=== PATIENT | male | born 1930 | race Caucasian/White ===

== ENCOUNTER 2016-03-06 14:16 | Emergency (ER) | payer MEDICARE, BC ==
[2016-03-06] MEDS ORDERED: SODIUM CHLORIDE 0.9% 1,000 ML IV ONE (14:39)
[2016-03-06 15:22] LABS: ALT 27 U/L (21-72); AST 21 U/L (17-59); Alkaline Phosphatase 54 U/L (38-126); Anion Gap 14 mmol/L; Blood Urea Nitrogen 21 mg/dL (9-20); Calcium 9.3 mg/dL (8.4-10.2); Carbon Dioxide 22 mmol/L (22-30); Chloride 106 mmol/L (98-107); Glucose 152 mg/dL (74-99); Non-African American GFR(MDRD) >60 (>60 ml/min/1.73 sqM); Potassium 4.5 mmol/L (3.5-5.1); Sodium 142 mmol/L (137-145); Total Bilirubin 0.6 mg/dL (0.2-1.3); Total Protein 6.6 g/dL (6.3-8.2)
--- NOTE | 2016-03-06 15:22 | ED ---
General Adult HPI - General Chief complaint: Altered Mental Status Stated complaint: Altered Mental Status Time Seen by Provider: 03/06/16 14:39 Source: EMS, RN notes reviewed, old records reviewed Mode of arrival: EMS Limitations: altered mental status - History of Present Illness Initial comments: This is a 85-year-old male here for evaluation. Patient coming in for evaluation of unresponsive episode, possible syncopal event, patient is brought in by EMS for evaluation. Patient's poor historian secondary to clinical state , history obtained from EMS, chart, patient's family - Related Data Home Medications Medication Instructions Recorded Confirmed Gabapentin 300 mg PO HS 03/06/16 03/06/16 Levothyroxine Sodium [Synthroid] 50 mcg PO DAILY 03/06/16 03/06/16 Lisinopril [Prinivil] 10 mg PO DAILY 03/06/16 03/06/16 Omeprazole [PriLOSEC] 20 mg PO AC-BID 03/06/16 03/06/16 Warfarin [Coumadin] 5 mg PO DAILY 03/06/16 03/06/16 metFORMIN HCL [Glucophage] 500 mg PO BID 03/06/16 03/06/16 predniSONE 5 mg PO DAILY 03/06/16 03/06/16 Allergies Allergy/AdvReac Type Severity Reaction Status Date / Time Sulfa (Sulfonamide Allergy Unknown Verified 03/06/16 14:37 Antibiotics) Review of Systems ROS Statement: Those systems with pertinent positive or pertinent negative responses have been documented in the HPI. ROS Other: All systems not noted in ROS Statement are negative. Past Medical History Past Medical History: Hearing Disorder / Deafness Additional Past Medical History / Comment(s): Hard of Hearing, hemochromatosis, History of Any Multi-Drug Resistant Organisms: Unobtainable Past Surgical History: Cholecystectomy Past Psychological History: Unable to Obtain Smoking Status: Unknown if ever smoked Past Alcohol Use History: Unable to Obtain Past Drug Use History: Unable to Obtain General Exam Limitations: altered mental status General appearance: alert, in no apparent distress, anxious Head exam: Present: atraumatic, normocephalic, normal inspection Eye exam: Present: normal appearance, PERRL, EOMI. Absent: scleral icterus, conjunctival injection, periorbital swelling ENT exam: Present: normal exam, mucous membranes moist Neck exam: Present: normal inspection. Absent: tenderness, meningismus, lymphadenopathy Respiratory exam: Present: normal lung sounds bilaterally. Absent: respiratory distress, wheezes, rales, rhonchi, stridor Cardiovascular Exam: Present: regular rate, normal rhythm, normal heart sounds. Absent: systolic murmur, diastolic murmur, rubs, gallop, clicks GI/Abdominal exam: Present: soft, normal bowel sounds. Absent: distended, tenderness, guarding, rebound, rigid Extremities exam: Present: normal inspection, full ROM, normal capillary refill. Absent: tenderness, pedal edema, joint swelling, calf tenderness Back exam: Present: normal inspection Neurological exam: Present: alert, oriented X3, CN II-XII intact Psychiatric exam: Present: normal affect, normal mood Skin exam: Present: warm, dry, intact, normal color. Absent: rash Course Vital Signs 03/06/16 03/06/16 03/06/16 14:28 15:17 16:20 Temperature 96.9 F L Pulse Rate 149 H 93 76 Respiratory 24 20 20 Rate Blood Pressure 95/63 142/92 132/92 O2 Sat by Pulse 93 L 90 L 98 Oximetry EKG Findings - EKG Comments: EKG Findings:: EKG shows sinus rhythm rate of 91, CT 136, QRS 90, QTC 437 Medical Decision Making - Medical Decision Making 85-year-old emergency room for evaluation of syncopal versus unresponsive event , family states just like prior episodes with hemachromatosis, especially with his altered mental status. Patient is CAT scan of [facility] which is negative for acute disease, chest problems which is negative, elevated lactic acid suggesting dehydration, patient is resuscitated appropriately, here negative for infection. Patient can be transferred to [facility] in the care of his own physician - Lab Data Result diagrams: 03/06/16 14:55 03/06/16 14:55 Lab Results 03/06/16 03/06/16 03/06/16 Range/Units 14:55 14:55 14:55 WBC 6.3 (3.8-10.6) k/uL RBC 4.17 L (4.30-5.90) m/uL Hgb 13.2 (13.0-17.5) gm/dL Hct 41.1 (39.0-53.0) % MCV 98.5 (80.0-100.0) fL MCH 31.7 (25.0-35.0) pg MCHC 32.2 (31.0-37.0) g/dL RDW 13.9 (11.5-15.5) % Plt Count 208 (150-450) k/uL Neutrophils % 80 % Lymphocytes % 10 % Monocytes % 7 % Eosinophils % 0 % Basophils % 0 % Neutrophils # 5.0 (1.3-7.7) k/uL Lymphocytes # 0.7 L (1.0-4.8) k/uL Monocytes # 0.4 (0-1.0) k/uL Eosinophils # 0.0 (0-0.7) k/uL Basophils # 0.0 (0-0.2) k/uL PT (9.0-12.0) sec INR (<1.1) APTT (22.0-30.0) sec Sodium (137-145) mmol/L Potassium (3.5-5.1) mmol/L Chloride (98-107) mmol/L Carbon Dioxide (22-30) mmol/L Anion Gap mmol/L BUN (9-20) mg/dL Creatinine (0.66-1.25) mg/dL Est GFR (MDRD) Af Amer (>60 ml/min/1.73 sqM) Est GFR (MDRD) Non-Af (>60 ml/min/1.73 sqM) Glucose (74-99) mg/dL Plasma Lactic Acid Niranjan 5.3 H* (0.7-2.0) mmol/L Calcium (8.4-10.2) mg/dL Total Bilirubin (0.2-1.3) mg/dL AST (17-59) U/L ALT (21-72) U/L Alkaline Phosphatase (38-126) U/L Ammonia <9 (<30) umol/L Total Creatine Kinase 69 (55-170) U/L CK-MB (CK-2) 2.6 H* (0.0-2.4) ng/mL CK-MB (CK-2) Rel Index 3.8 Troponin I <0.012 (0.000-0.034) ng/mL Total Protein (6.3-8.2) g/dL Albumin (3.5-5.0) g/dL Urine Color Urine Appearance (Clear) Urine pH (5.0-8.0) Ur Specific [place] (1.001-1.035) Urine Protein (Negative) Urine Glucose (UA) (Negative) Urine Ketones (Negative) Urine Blood (Negative) Urine Nitrate (Negative) Urine Bilirubin (Negative) Urine Urobilinogen (<2.0) mg/dL Ur Leukocyte Esterase (Negative) Urine RBC (0-5) /hpf Urine WBC (0-5) /hpf Amorphous Sediment (None) /hpf Hyaline Casts (0-2) /lpf Urine Mucus (None) /hpf Urine Sperm (None) /hpf 03/06/16 03/06/16 03/06/16 Range/Units 14:55 14:55 17:05 WBC (3.8-10.6) k/uL RBC (4.30-5.90) m/uL Hgb (13.0-17.5) gm/dL Hct (39.0-53.0) % MCV (80.0-100.0) fL MCH (25.0-35.0) pg MCHC (31.0-37.0) g/dL RDW (11.5-15.5) % Plt Count (150-450) k/uL Neutrophils % % Lymphocytes % % Monocytes % % Eosinophils % % Basophils % % Neutrophils # (1.3-7.7) k/uL Lymphocytes # (1.0-4.8) k/uL Monocytes # (0-1.0) k/uL Eosinophils # (0-0.7) k/uL Basophils # (0-0.2) k/uL PT 30.7 H (9.0-12.0) sec INR 3.2 (<1.1) APTT 29.8 (22.0-30.0) sec Sodium 142 (137-145) mmol/L Potassium 4.5 (3.5-5.1) mmol/L Chloride 106 (98-107) mmol/L Carbon Dioxide 22 (22-30) mmol/L Anion Gap 14 mmol/L BUN 21 H (9-20) mg/dL Creatinine 1.06 (0.66-1.25) mg/dL Est GFR (MDRD) Af Amer >60 (>60 ml/min/1.73 sqM) Est GFR (MDRD) Non-Af >60 (>60 ml/min/1.73 sqM) Glucose 152 H (74-99) mg/dL Plasma Lactic Acid Niranjan (0.7-2.0) mmol/L Calcium 9.3 (8.4-10.2) mg/dL Total Bilirubin 0.6 (0.2-1.3) mg/dL AST 21 (17-59) U/L ALT 27 (21-72) U/L Alkaline Phosphatase 54 (38-126) U/L Ammonia (<30) umol/L Total Creatine Kinase (55-170) U/L CK-MB (CK-2) (0.0-2.4) ng/mL CK-MB (CK-2) Rel Index Troponin I (0.000-0.034) ng/mL Total Protein 6.6 (6.3-8.2) g/dL Albumin 4.0 (3.5-5.0) g/dL Urine Color Yellow Urine Appearance Clear (Clear) Urine pH 6.5 (5.0-8.0) Ur Specific [place] 1.028 (1.001-1.035) Urine Protein Trace H (Negative) Urine Glucose (UA) Negative (Negative) Urine Ketones Negative (Negative) Urine Blood Trace H (Negative) Urine Nitrate Negative (Negative) Urine Bilirubin Negative (Negative) Urine Urobilinogen <2.0 (<2.0) mg/dL Ur Leukocyte Esterase Negative (Negative) Urine RBC 4 (0-5) /hpf Urine WBC 2 (0-5) /hpf Amorphous Sediment Rare H (None) /hpf Hyaline Casts 11 H (0-2) /lpf Urine Mucus Rare H (None) /hpf Urine Sperm Rare (None) /hpf - Radiology Data Radiology results: report reviewed (CT brain, CT chest and pelvis, chest x-ray, negative for acute disease), image reviewed Disposition Clinical Impression: Altered mental status, Hemochromatosis, Syncope Disposition: OTHER INSTITUTION NOT DEFINED Condition: Fair Referrals: Hafsa Conway DO [Primary Care Provider] - 1-2 days - Out of Hospital Transfer - Req. Specs Out of Hospital Transfer - Requested Specifics: Other Emergency Center ([facility])
[2016-03-06 15:26] LABS: Ammonia <9 umol/L (<30)
[2016-03-06 15:27] LABS: Basophils % (A) 0 %; CH 32.2; Eosinophils % (A) 0 %; HCT 41.1 % (39.0-53.0); HDW 2.66; HGB 13.2 gm/dL (13.0-17.5); Luc # (Auto) 0.19; Luc % (Auto) 3; Lymphocytes # (A) 0.7 k/uL (1.0-4.8); Lymphocytes % (A) 10 %; MCH 31.7 pg (25.0-35.0); MCHC 32.2 g/dL (31.0-37.0); MCV 98.5 fL (80.0-100.0); Mean Platelet Volume 9.2; Monocytes # (A) 0.4 k/uL (0-1.0); Monocytes % (A) 7 %; Neutrophils % (A) 80 %; RBC 4.17 m/uL (4.30-5.90); RDW 13.9 % (11.5-15.5); WBC 6.3 k/uL (3.8-10.6)
[2016-03-06 15:32] LABS: Creatine Kinase 69 U/L (55-170)
--- NOTE | 2016-03-06 15:38 | XR ---
EXAMINATION TYPE: XR chest 1V portable DATE OF EXAM: 03/06/2016 3:33 PM HISTORY: Shortness of breath. COMPARISON: None. TECHNIQUE: Single view of the chest is submitted. FINDINGS: Demonstrated are scattered senescent parenchymal change. There is no evidence for focal infiltrate. The heart is stable. Hilar and mediastinal structures are within normal limits. Degenerative changes are seen of the dorsal spine. IMPRESSION: 1. Chronic changes without evidence for acute pulmonary disease.
[2016-03-06 15:40] LABS: INR 3.2 (<1.1); Partial Thromboplastin Time 29.8 sec (22.0-30.0); Prothrombin Time 30.7 sec (9.0-12.0)
[2016-03-06 15:46] LABS: Troponin I <0.012 ng/mL (0.000-0.034)
[2016-03-06 15:51] LABS: Creatine Kinase MB 2.6 ng/mL (0.0-2.4)
[2016-03-06] MEDS ORDERED: MORPHINE SULFATE 4 MG/ML SYRINGE IVP STA (15:56)
[2016-03-06] MEDS ORDERED: LORazepam 2 MG/ML SYRINGE IV STA (15:56)
--- NOTE | 2016-03-06 16:03 | CT ---
EXAMINATION TYPE: CT brain wo con DATE OF EXAM: 03/06/2016 3:49 PM HISTORY: Patient poor historian. Patient shows signs of altered mental status. CT DLP: 812.5 mGycm. Automated Exposure Control for Dose Reduction was Utilized. TECHNIQUE: CT scan of the head is performed without contrast. COMPARISON: None. FINDINGS: There is no acute intracranial hemorrhage or midline shift identified. There is diffuse v entricular and sulcal prominence consistent with diffuse age-related cerebral atrophy. There is low- attenuation in the periventricular white matter consistent with chronic small vessel ischemic change. The globes are intact and the visualized sinuses are clear. IMPRESSION: No acute intracranial hemorrhage or midline shift. There is mild to moderate diffuse ag e-related cerebral atrophy and chronic small vessel ischemic change noted.
[2016-03-06] MEDS ORDERED: SODIUM CHLORIDE 0.9% 1,000 ML IV STA (16:22)
[2016-03-06] MEDS ORDERED: SODIUM CHLORIDE 0.9% 2,000 ML IV STA (16:22)
[2016-03-06] MEDS ORDERED: SODIUM CHLORIDE 0.9% 500 ML IV STA (16:22)
[2016-03-06] MEDS ORDERED: RX INFO: IV CONTRAST WAS GIVEN 1 EACH MISC MISCELLANE PRN (16:23)
--- NOTE | 2016-03-06 17:00 | CT ---
EXAMINATION TYPE: CT angio chest DATE OF EXAM: 03/06/2016 4:53 PM COMPARISON: Chest x-ray earlier today HISTORY: Chest pain rule out pulmonary embolism . CT DLP: 2158.00 mGycm. Automated Exposure Control for Dose Reduction was Utilized. CONTRAST: CTA scan of the thorax is performed with IV Contrast, patient injected with 100 mL of Omnipaque 300, pulmonary embolism protocol. MIP Images are created on CT scanner and reviewed. FINDINGS: LUNGS: Exam is suboptimal as is degraded by patient respiratory motion artifact limiting evaluation f or subcentimeter nodularity. Mild emphysematous change is seen. Dependent atelectasis in both lower l obes is present. There is more focal atelectasis or Limited consolidation in the central left lower l obe near diaphragm. Additional focal atelectasis in the lingula and right middle lobe towards heart b order is present. No suspicious parenchymal nodule or mass is seen bilaterally. No pleural effusion o r pneumothorax is noted bilaterally. MEDIASTINUM: There is satisfactory enhancement of the pulmonary artery and its branches, there is no CT evidence for pulmonary embolism. There are no greater than 1 cm hilar or mediastinal lymph nodes. No cardiomegaly or pericardial effusion is seen. Heart size is mildly enlarged. There is moderate mixed plaque in aortic arch. 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 OTHER: Multilevel spurring in thoracic spine is seen. Please refer to same day CT abdomen and pelvis study for complete details of the upper abdomen. IMPRESSION: No CT evidence for pulmonary embolism. No suspicious acute pulmonary process is seen.
--- NOTE | 2016-03-06 17:03 | CT ---
EXAMINATION TYPE: CT abdomen pelvis w con DATE OF EXAM: 03/06/2016 4:53 PM COMPARISON: NONE HISTORY: Pain rule out pathology per order. CT DLP: 2158.00 mGycm, Automated Exposure Control for Dose Reduction was Utilized. CONTRAST: CT scan of the abdomen and pelvis is performed with oral and with IV Contrast, patient injected with 100 mL of Omnipaque 300. FINDINGS: LUNG BASES: Please refer to same day CTA chest report for complete details Of the lower thorax. LIVER/GB: Cholecystectomy clips are present. There is mild central intrahepatic and extrahepatic bili rosi prominence measuring up to 10 mm which is upper limits of normal status post cholecystectomy. PANCREAS: There is some ductal prominence towards the head is prominent near axial image 29. Some carlos cifications are seen at this level. Findings are presumed product of chronic pancreatitis given the c alcifications. Nonspecific 3 mm low dense lesion on axial image 27 is too small to further characteri ze in the head. SPLEEN: No significant abnormality is seen. ADRENALS: No significant abnormality is seen. KIDNEYS: There is 2.5 cm simple appearing cyst laterally mid pole level left kidney. There are additi onal subcentimeter low dense lesions scattered throughout both kidneys are too small to further nadya cterize per presumed benign. BOWEL: The evaluation of bowel is suboptimal due to lack of enteric contrast. No suspicious small or large bowel dilatation is present. Normal-appearing appendix is seen from the cecum. PROSTATE/SEMINAL VESICLES: Prostate gland is heterogeneous in appearance and slightly enlarged in siz e suggesting BPH, clinical correlation is advised. Some adjacent scattered pelvic phleboliths are see n. LYMPH NODES: No greater than 1cm abdominal or pelvic lymph nodes are appreciated. OSSEOUS STRUCTURES: There is multilevel spurring and disc space narrowing throughout the visualized t horacolumbar spine. Osseous structures are demineralized. There is moderate axial joint space loss an d subchondral cystic change in both hips. There is spurring at greater trochanter level bilaterally. OTHER: There is moderate to severe mixed plaque of aorta and branch vessels. IMPRESSION: No significant acute finding is seen to account for patient's clinical symptoms. Other f indings as noted above.
[2016-03-06 17:22] LABS: Amorphous Sediment,Urine Rare /hpf; Appearance,Urine Clear (Clear); Bilirubin,Urine Negative (Negative); Glucose,Urine (UA) Negative (Negative); Ketones,Urine Negative (Negative); Leukocyte Esterase,Urine Negative (Negative); Mucus,Urine Rare /hpf; Nitrite,Urine Negative (Negative); PH, Urine 6.5 (5.0-8.0); Particle Count 1688; Protein,Urine Trace (Negative); RBC,Urine 4 /hpf (0-5); Specific Gravity,Urine 1.028 (1.001-1.035); Sperm,Urine Rare /hpf; UA Billing (MACRO vs. MICRO) MICRO; Urobilinogen,Urine <2.0 mg/dL (<2.0); WBC,Urine 2 /hpf (0-5)
[2016-03-06 17:59] VITALS: BP 168/81; PULSE 83; RESP 18; TEMP 97.8
== END 2016-03-06 18:43 | disposition other institution (70) ==
LOC: EC 14:16
DX: R41.82 Altered mental status, unspecified (principal); E83.110 Hereditary hemochromatosis; R55 Syncope and collapse; Z79.899 Other long term (current) drug therapy; Z79.01 Long term (current) use of anticoagulants; Z79.84 Long term (current) use of oral hypoglycemic drugs; Z79.52 Long term (current) use of systemic steroids; Z88.2 Allergy status to sulfonamides
CPT/HCPCS: 96374; 96375; 96361 ×3; 99285; 36415; 93005; 80053; 82140; 82550; 82553; 83605; 84484; 85025; 85610; 85730; 81001; 87040; 80306; 87086; 71010; 70450; 71275; 74177; J2060; J2270; Q9967

== ENCOUNTER 2017-10-21 15:00 | Emergency (ER) | payer MEDICARE, BC ==
[2017-10-21 15:08] VITALS: RESP 18
[2017-10-21] MEDS ORDERED: SODIUM CHLORIDE 0.9% 1,000 ML IV ONE (15:28)
[2017-10-21] MEDS ORDERED: DIPH,PERTUS(ACELL)TETVAC-LF 0.5 ML VIAL IM ONE (15:31)
[2017-10-21] MEDS ORDERED: TOPICAL SKIN ADHESIVE 1 EACH AMP TOPICAL ONE ×2 (15:33→17:57)
[2017-10-21] MEDS ORDERED: GELATIN SPONGE,ABSORB (LARGE) 1 EACH SPONGE TOPICAL STA (15:33)
--- NOTE | 2017-10-21 15:33 | ED ---
Fall HPI - General Chief Complaint: Fall Stated Complaint: fall/head injury Time Seen by Provider: 10/21/17 15:15 Source: patient, RN notes reviewed, old records reviewed Mode of arrival: EMS - History of Present Illness Initial Comments: Patient is an 87-year-old male presents emergency Department chief complaint of fall. He is not on any blood thinners. Patient reports he was helping a friend around the house. He reports he tripped over a flip between 2 rooms area Patient reports that he fell on his head. Denies LOC. He has a significant laceration over the right eyebrow. He says significant skin tear over the right forearm. Patient was placed in C collar by EMS. Patient denies chest pain, shortness of breath, abdominal pain. - Related Data Home Medications Medication Instructions Recorded Confirmed Gabapentin 300 mg PO HS 03/06/16 03/06/16 Levothyroxine Sodium [Synthroid] 50 mcg PO DAILY 03/06/16 03/06/16 Lisinopril [Prinivil] 10 mg PO DAILY 03/06/16 03/06/16 Omeprazole [PriLOSEC] 20 mg PO AC-BID 03/06/16 03/06/16 Warfarin [Coumadin] 5 mg PO DAILY 03/06/16 03/06/16 metFORMIN HCL [Glucophage] 500 mg PO BID 03/06/16 03/06/16 predniSONE 5 mg PO DAILY 03/06/16 03/06/16 Allergies Allergy/AdvReac Type Severity Reaction Status Date / Time Sulfa (Sulfonamide Allergy Unknown Verified 03/06/16 14:37 Antibiotics) Review of Systems ROS Statement: Those systems with pertinent positive or pertinent negative responses have been documented in the HPI. ROS Other: All systems not noted in ROS Statement are negative. Past Medical History Past Medical History: Hearing Disorder / Deafness Additional Past Medical History / Comment(s): Hard of Hearing, hemochromatosis, History of Any Multi-Drug Resistant Organisms: Unobtainable Past Surgical History: Cholecystectomy Past Psychological History: Unable to Obtain Smoking Status: Unknown if ever smoked Past Alcohol Use History: Unable to Obtain Past Drug Use History: Unable to Obtain General Exam - General Exam Comments Initial Comments: 87-year-old male. Alert and oriented. Joking. No significant distress at this time. Patient is extremely hard of hearing. Limitations: no limitations General appearance: alert, in no apparent distress Head exam: Present: normocephalic, normal inspection. Absent: atraumatic ( Patient is a 3 cm laceration over the right eyebrow. Irregular. Deep.) Eye exam: Present: normal appearance, PERRL, EOMI. Absent: scleral icterus, conjunctival injection, periorbital swelling ENT exam: Present: normal exam, mucous membranes moist Neck exam: Present: normal inspection. Absent: tenderness, meningismus, lymphadenopathy Respiratory exam: Present: normal lung sounds bilaterally. Absent: respiratory distress, wheezes, rales, rhonchi, stridor Cardiovascular Exam: Present: regular rate, normal rhythm, normal heart sounds. Absent: systolic murmur, diastolic murmur, rubs, gallop, clicks GI/Abdominal exam: Present: soft, normal bowel sounds. Absent: distended, tenderness, guarding, rebound, rigid Extremities exam: Present: full ROM, normal capillary refill, other. Absent: normal inspection, tenderness, pedal edema, joint swelling, calf tenderness Right Elbow exam: Present: normal inspection, full ROM Forearm Wrist exam: Present: laceration (2 seperate skin tears each measuring 6cm by 5cm. skin remains over the tissue. ). Absent: normal inspection, full ROM Hand Wrist exam: Present: normal inspection, full ROM Neuro motor exam: Present: wrist extension intact, thumb opposition intact, thumb IP flexion intact, thumb adduction intact, fingers 2-5 abduction intact Back exam: Present: normal inspection Neurological exam: Present: alert, oriented X3, CN II-XII intact Psychiatric exam: Present: normal affect, normal mood Skin exam: Present: warm, dry, intact, normal color. Absent: rash Course Vital Signs 10/21/17 10/21/17 15:03 18:40 Temperature 98.7 F 98.1 F Pulse Rate 87 85 Respiratory 18 18 Rate Blood Pressure 159/114 150/70 O2 Sat by Pulse 95 85 L Oximetry Procedures - Laceration Laceration #1 Site: face Size (cm): 4 Description: stellate, irregular (Y shaped laceration) Depth: simple, single layer Anesthetic Used: lidocaine 1% Anesthesia Technique: local infiltration Amount (mls): 2 Pre-repair: wound explored, irrigated extensively Type of Sutures: nylon Size of Sutures: 5-0 Number of Sutures: 7 Technique: simple, interrupted Patient Tolerated Procedure: well, no complications Laceration #2 Site: upper extremity (R forearm) Size (cm): 6 Description: flap Depth: simple, single layer (Skin tear) Type of Sutures: other (dermabond) Patient Tolerated Procedure: well, no complications Additional Comments: Skin was stretched and covered avulsed area, wound closed well with dermabond. Laceration #3 Site: upper extremity (R forearm) Size (cm): 6 Description: flap Depth: simple, single layer Type of Sutures: other (dermabond) Patient Tolerated Procedure: well, no complications Additional Comments: Skin tear over distal forearm, 6cm by 4cm. Skin that was avulsed and folded was carefully restretched and placed over open area. Closed with dermabond. Tolerated procedure well. Medical Decision Making - Medical Decision Making 87 year old male at assisted living facility presents today after trip and fall. Patient has skin tear over R forearm, laceration R forehead. No blood thinners. Patient labs reviewed, negative for acute chagnes. Denies chest pain , SOB or other symptoms. Patient wounds were stitched and closed with dermabond. CT brain and cspine are negative for acute process. Forearm xray was reviewed and CXR are both negative for acute changes. Patient is anxious to go home. Discussed wound care and return parameters discussed. - Lab Data Result diagrams: 10/21/17 15:17 10/21/17 15:17 Lab Results 10/21/17 10/21/17 10/21/17 Range/Units 15:17 15:17 15:17 WBC 9.7 (3.8-10.6) k/uL RBC 3.48 L (4.30-5.90) m/uL Hgb 10.4 L (13.0-17.5) gm/dL Hct 33.3 L (39.0-53.0) % MCV 95.5 (80.0-100.0) fL MCH 29.9 (25.0-35.0) pg MCHC 31.3 (31.0-37.0) g/dL RDW 15.0 (11.5-15.5) % Plt Count 146 L (150-450) k/uL Neutrophils % 22 % Lymphocytes % 59 % Monocytes % 6 % Eosinophils % 8 % Basophils % 1 % Neutrophils # 2.2 (1.3-7.7) k/uL Lymphocytes # 5.7 H (1.0-4.8) k/uL Monocytes # 0.6 (0-1.0) k/uL Eosinophils # 0.8 H (0-0.7) k/uL Basophils # 0.1 (0-0.2) k/uL Manual Slide Review Performed PT (9.0-12.0) sec INR (<1.2) APTT (22.0-30.0) sec Sodium 137 (137-145) mmol/L Potassium 5.1 (3.5-5.1) mmol/L Chloride 107 (98-107) mmol/L Carbon Dioxide 23 (22-30) mmol/L Anion Gap 7 mmol/L BUN 20 (9-20) mg/dL Creatinine 0.90 (0.66-1.25) mg/dL Est GFR (CKD-EPI)AfAm 88 (>60 ml/min/1.73 sqM) Est GFR (CKD-EPI)NonAf 77 (>60 ml/min/1.73 sqM) Glucose 85 (74-99) mg/dL Calcium 8.7 (8.4-10.2) mg/dL Total Bilirubin 0.7 (0.2-1.3) mg/dL AST 36 (17-59) U/L ALT 16 L (21-72) U/L Alkaline Phosphatase 63 (38-126) U/L Troponin I <0.012 (0.000-0.034) ng/mL Total Protein 7.0 (6.3-8.2) g/dL Albumin 3.4 L (3.5-5.0) g/dL 10/21/17 Range/Units 15:17 WBC (3.8-10.6) k/uL RBC (4.30-5.90) m/uL Hgb (13.0-17.5) gm/dL Hct (39.0-53.0) % MCV (80.0-100.0) fL MCH (25.0-35.0) pg MCHC (31.0-37.0) g/dL RDW (11.5-15.5) % Plt Count (150-450) k/uL Neutrophils % % Lymphocytes % % Monocytes % % Eosinophils % % Basophils % % Neutrophils # (1.3-7.7) k/uL Lymphocytes # (1.0-4.8) k/uL Monocytes # (0-1.0) k/uL Eosinophils # (0-0.7) k/uL Basophils # (0-0.2) k/uL Manual Slide Review PT 12.3 H (9.0-12.0) sec INR 1.3 H (<1.2) APTT 23.0 (22.0-30.0) sec Sodium (137-145) mmol/L Potassium (3.5-5.1) mmol/L Chloride (98-107) mmol/L Carbon Dioxide (22-30) mmol/L Anion Gap mmol/L BUN (9-20) mg/dL Creatinine (0.66-1.25) mg/dL Est GFR (CKD-EPI)AfAm (>60 ml/min/1.73 sqM) Est GFR (CKD-EPI)NonAf (>60 ml/min/1.73 sqM) Glucose (74-99) mg/dL Calcium (8.4-10.2) mg/dL Total Bilirubin (0.2-1.3) mg/dL AST (17-59) U/L ALT (21-72) U/L Alkaline Phosphatase (38-126) U/L Troponin I (0.000-0.034) ng/mL Total Protein (6.3-8.2) g/dL Albumin (3.5-5.0) g/dL 10/21/17 16:04 EKG performed at 10/10/1934 shows sinus rhythm with PACs. On arrange block. Left anterior fascicular block. Bifascicular block. Ventricular rate of 80 bpm. Intervals 176 ms. QRS duration 146 ms. QT QTc is 434/525 ms. No evidence of ST elevation or T-wave inversion. - Radiology Data Radiology results: report reviewed CT brain shows no acute chagnes. Cspine has multilevel Did generative changes. X -ray of the chest was negative for any acute changes. For a mattress negative for fracture. Disposition Clinical Impression: Fall, Forehead laceration, Skin tear of right forearm without complication Disposition: HOME SELF-CARE Condition: Good Instructions: Fall Prevention for Older Adults (ED) Additional Instructions: Please return to the emergency room in 8-10 days to have sutures removed. Please leave wound covered for the first 24-48 hours and then leave open to air after that time. Please use clean soap and water to clean the suture area to prevent scabbing over the top of your sutures. Please watch for any signs of infection which may include but not limited to increased pain, swelling, redness , fever or chills. Please return to the emergency room if any signs of infection do occur. Please return to the emergency room for any other concerns or complications. Patient to follow-up with primary care provider within the next 1-2 days. Is patient prescribed a controlled substance at d/c from ED?: No Referrals: Hafsa Conway DO [Primary Care Provider] - 1-2 days Time of Disposition: 18:34
[2017-10-21 15:45] LABS: Basophils # (A) 0.1 k/uL (0-0.2); Basophils % (A) 1 %; Eosinophils # (A) 0.8 k/uL (0-0.7); Eosinophils % (A) 8 %; HCT 33.3 % (39.0-53.0); HGB 10.4 gm/dL (13.0-17.5); Lymphocytes % (A) 59 %; MCH 29.9 pg (25.0-35.0); MCHC 31.3 g/dL (31.0-37.0); MCV 95.5 fL (80.0-100.0); Mean Platelet Volume 8.2; Monocytes # (A) 0.6 k/uL (0-1.0); Monocytes % (A) 6 %; Neutrophils # (A) 2.2 k/uL (1.3-7.7); Neutrophils % (A) 22 %; Platelet Count 146 k/uL (150-450); RBC 3.48 m/uL (4.30-5.90); WBC 9.7 k/uL (3.8-10.6)
[2017-10-21 15:56] LABS: Lymphocytes # (A) 5.7 k/uL (1.0-4.8)
[2017-10-21 16:02] LABS: Albumin 3.4 g/dL (3.5-5.0); Calcium 8.7 mg/dL (8.4-10.2); Total Bilirubin 0.7 mg/dL (0.2-1.3)
[2017-10-21] MEDS ORDERED: LIDOCAINE 1% INJ 10MG/ML (20 ML MDV) SQ STA (16:09)
[2017-10-21 16:18] LABS: Potassium 5.1 mmol/L (3.5-5.1)
[2017-10-21 16:52] LABS: INR 1.3 (<1.2); Prothrombin Time 12.3 sec (9.0-12.0)
--- NOTE | 2017-10-21 16:54 | CT ---
EXAMINATION TYPE: CT brain armando castro DATE OF EXAM: 10/21/2017 COMPARISON: NONE HISTORY: Fall CT DLP: 1057.4 mGycm. Automated Exposure Control for Dose Reduction was Utilized. TECHNIQUE: CT scan of the head and cervical spine are performed without contrast. FINDINGS: There is no acute intracranial hemorrhage, mass effect, or midline shift identified. The ventricles and sulci are within normal limits in size. The globes are intact and the visualized sin uses are clear. Cervical spine is visualized in its entirety from C1 through upper thoracic levels and demonstrates s atisfactory alignment without evidence of acute fracture or dislocation. Prevertebral soft tissue ap pears within normal limits. The C1-C2 articulation is unremarkable. Multilevel facet hypertrophy, i ntervertebral joint space narrowing, anterior and posterior osteophytosis as well as endplate scleros is is seen throughout the entirety of the visualized cervical spine. IMPRESSION: 1. There is no acute fracture or dislocation evident in the cervical spine. 2. No acute intracranial hemorrhage, mass effect, or midline shift is seen. 3. Extensive multilevel degenerative type changes of the cervical spine.
--- NOTE | 2017-10-21 18:14 | XR ---
EXAMINATION TYPE: XR chest 2V DATE OF EXAM: 10/21/2017 COMPARISON: NONE HISTORY: Fall, pain TECHNIQUE: Frontal and lateral views of the chest are obtained. FINDINGS: There is no focal air space opacity, pleural effusion, or pneumothorax seen. The cardiac silhouette size is within normal limits. The osseous structures are intact. IMPRESSION: No acute cardiopulmonary process.
[2017-10-21 18:41] VITALS: BP 150/70; PULSE 85; TEMP 98.1
--- NOTE | 2017-10-21 18:51 | XR ---
EXAMINATION TYPE: XR forearm RT DATE OF EXAM: 10/21/2017 CLINICAL HISTORY: Fall, pain TECHNIQUE: Two views of the right forearm are obtained. COMPARISON: None. FINDINGS: There is no acute fracture or dislocation seen in the right radius or ulna. The right elb ow and wrist joints appear within normal limits. The overlying soft tissue appears within normal [place] its. Degenerative type changes are seen throughout the recent elbow. IMPRESSION: There is no acute fracture or dislocation seen in the right radius or ulna.
== END 2017-10-21 18:47 | disposition home or self-care (01) ==
LOC: EC 15:00
DX: S01.81XA Laceration without foreign body of other part of head, initial encounter (principal); S51.811A Laceration without foreign body of right forearm, initial encounter; Z23 Encounter for immunization; Z53.8 Procedure and treatment not carried out for other reasons; H91.90 Unspecified hearing loss, unspecified ear; Z79.01 Long term (current) use of anticoagulants; Z79.52 Long term (current) use of systemic steroids; Z79.84 Long term (current) use of oral hypoglycemic drugs; Z79.899 Other long term (current) drug therapy; Z88.2 Allergy status to sulfonamides; W01.0XXA Fall on same level from slipping, tripping and stumbling without subsequent striking against object, initial encounter; Y92.009 Unspecified place in unspecified non-institutional (private) residence as the place of occurrence of the external cause
CPT/HCPCS: 36415; 93005; 80053; 84484; 85025; 85610; 85730; 73090; 71046; 72125; 70450; 90715; 99285; 12013; 12004; 90471; J2001

== ENCOUNTER 2018-02-07 08:31 | Emergency (ER) | payer MEDICARE ==
[2018-02-07] MEDS ORDERED: SODIUM CHLORIDE 0.9% 500 ML 500 ML IV ONE (08:38)
[2018-02-07 08:43] VITALS: RESP 18
--- NOTE | 2018-02-07 08:43 | ED ---
General Adult HPI - General Stated complaint: Fall - History of Present Illness Initial comments: Dictation was produced using [employer] dictation software. please excuse any grammatical, word or spelling errors. Chief Complaint: 87-year-old male with multiple comorbidities presents after being found down at assisted living facility. History of Present Illness: Patient is 87-year-old male with extreme hard of hearing, atrial fibrillation, hypertension presents via EMS for being found on the ground. According EMS patient was potentially less normal last night. Patient lives at assisted living facility. He was found to ground earlier this morning. Patient has been complaining that he is cold. Patient unable to provide EtOH. At this time given history of dementia and significant hearing disorder. According EMS patient had normoglycemia and stable vital signs initially. EMS did not report of him complaining of any significant pain. - Related Data Home Medications Medication Instructions Recorded Confirmed Levothyroxine Sodium [Synthroid] 50 mcg PO DAILY 03/06/16 02/07/18 Hydrocortisone 7.5 mg PO DAILY 02/07/18 02/07/18 Mirtazapine [Remeron] 15 mg PO HS 02/07/18 02/07/18 Allergies Allergy/AdvReac Type Severity Reaction Status Date / Time Sulfa (Sulfonamide Allergy Unknown Verified 02/07/18 11:30 Antibiotics) Review of Systems ROS Statement: Those systems with pertinent positive or pertinent negative responses have been documented in the HPI. ROS Other: All systems not noted in ROS Statement are negative. Past Medical History Past Medical History: Hearing Disorder / Deafness Additional Past Medical History / Comment(s): Hard of Hearing, hemochromatosis, History of Any Multi-Drug Resistant Organisms: Unobtainable Past Surgical History: Cholecystectomy Past Psychological History: Unable to Obtain Smoking Status: Unknown if ever smoked Past Alcohol Use History: Unable to Obtain Past Drug Use History: Unable to Obtain General Exam - General Exam Comments Initial Comments: PHYSICAL EXAM: General Impression: Alert and oriented x3, not in acute distress HEENT: Small hematoma over the right frontal forehead, extra-ocular movements intact, pupils equal and reactive to light bilaterally, mucous membranes moist. Cardiovascular: Heart regular rate and rhythm, S1&S2 audible, no murmurs, rubs or gallops Chest: Lungs clear to auscultation bilaterally, no rhonchi, no wheeze, no rales Abdomen: Bowel sounds present, abdomen soft, non-tender, non-distended, no organomegaly Musculoskeletal: Pulses present and equal in all extremities, no peripheral edema Motor: Power 5/5 bilaterally, no focal deficits noted Neurological: CN II-XII grossly intact, no focal motor or sensory deficits noted , mild rigidity Skin: Small avulsion to left lateral elbow Course Vital Signs 02/07/18 08:36 Temperature 98.7 F Pulse Rate 87 Respiratory 18 Rate Blood Pressure 119/79 O2 Sat by Pulse 99 Oximetry Procedures - Laceration Laceration #1 Consent Obtained: verbal consent Time Out Performed: Yes Indication: laceration Site: upper extremity Description: linear Depth: simple, single layer Pre-repair: wound explored, irrigated extensively Type of Sutures: nylon Size of Sutures: 4-0 Technique: running Medical Decision Making - Medical Decision Making ED course: 87-year-old male presents after being found down. Return evaluation obtained. CBC, coag panel, metabolic panel unremarkable. Patient's CK is 425. I will x-ray was obtained showing no acute fractures. Resume laceration with exposed bone under the left elbow. Patient's tetanus was updated. Pelvis x-ray is unremarkable. Computed tomography scan of the head and C-spine was obtained showing no acute injuries. His x-ray shows no acute processes. Patient's son came to emergency department. They report that he is acting at baseline. Patient's history of atrial fibrillation of does not take blood thinners due to fall risk. Family and patient requested to be discharged. At this point it is unclear whether patient syncopized however they do have good follow-up. They are amenable to be discharge with further care done by primary care physician. We've this is a reasonable plan given that patient and family report hitting baseline. They're told that he may have syncopized and there could be another cause for his falling. The patient does not quite remember exactly when causing a fall. They're told to come back to the emergency Department with any worsening symptoms especially headache, altered mental status or syncope. Son states that he will stay with patient for the time being picture patient does not have any difficulties. EKG Interpretation: A 12 lead EKG was obtained. It was interpreted by myself and attending physician. There is a P wave before every QRS complex. Rate is 84. Rhythm is sinus rhythm,. Interval 172, QRS 142, QTC 491. QT is not prolonged. No ST segment depression or elevation. This EKG was compared to a previous EKG that was obtained on 10/21/2017 and showed no significant change. Overall, this EKG is unremarkable - Lab Data Result diagrams: 02/07/18 08:41 02/07/18 08:41 Lab Results 02/07/18 02/07/18 02/07/18 Range/Units 08:41 08:41 08:41 WBC 11.1 H (3.8-10.6) k/uL RBC 3.70 L (4.30-5.90) m/uL Hgb 11.4 L (13.0-17.5) gm/dL Hct 34.6 L (39.0-53.0) % MCV 93.4 (80.0-100.0) fL MCH 30.7 (25.0-35.0) pg MCHC 32.9 (31.0-37.0) g/dL RDW 15.0 (11.5-15.5) % Plt Count 219 (150-450) k/uL Neutrophils % 54 % Lymphocytes % 34 % Monocytes % 6 % Eosinophils % 2 % Basophils % 1 % Neutrophils # 5.9 (1.3-7.7) k/uL Lymphocytes # 3.8 (1.0-4.8) k/uL Monocytes # 0.6 (0-1.0) k/uL Eosinophils # 0.2 (0-0.7) k/uL Basophils # 0.1 (0-0.2) k/uL PT (9.0-12.0) sec INR (<1.2) APTT (22.0-30.0) sec Sodium (137-145) mmol/L Potassium (3.5-5.1) mmol/L Chloride (98-107) mmol/L Carbon Dioxide (22-30) mmol/L Anion Gap mmol/L BUN (9-20) mg/dL Creatinine (0.66-1.25) mg/dL Est GFR (CKD-EPI)AfAm (>60 ml/min/1.73 sqM) Est GFR (CKD-EPI)NonAf (>60 ml/min/1.73 sqM) Glucose (74-99) mg/dL POC Glucose (mg/dL) (75-99) mg/dL POC Glu Used Car Manager ID Calcium (8.4-10.2) mg/dL Total Bilirubin (0.2-1.3) mg/dL AST (17-59) U/L ALT (21-72) U/L Alkaline Phosphatase (38-126) U/L Ammonia 12 (<30) umol/L Total Creatine Kinase 425 H (55-170) U/L CK-MB (CK-2) 2.3 (0.0-2.4) ng/mL CK-MB (CK-2) Rel Index 0.5 Troponin I 0.020 (0.000-0.034) ng/mL Total Protein (6.3-8.2) g/dL Albumin (3.5-5.0) g/dL 02/07/18 02/07/18 02/07/18 Range/Units 08:41 08:41 08:58 WBC (3.8-10.6) k/uL RBC (4.30-5.90) m/uL Hgb (13.0-17.5) gm/dL Hct (39.0-53.0) % MCV (80.0-100.0) fL MCH (25.0-35.0) pg MCHC (31.0-37.0) g/dL RDW (11.5-15.5) % Plt Count (150-450) k/uL Neutrophils % % Lymphocytes % % Monocytes % % Eosinophils % % Basophils % % Neutrophils # (1.3-7.7) k/uL Lymphocytes # (1.0-4.8) k/uL Monocytes # (0-1.0) k/uL Eosinophils # (0-0.7) k/uL Basophils # (0-0.2) k/uL PT 10.3 (9.0-12.0) sec INR 1.0 (<1.2) APTT 24.9 (22.0-30.0) sec Sodium 139 (137-145) mmol/L Potassium 4.4 (3.5-5.1) mmol/L Chloride 109 H (98-107) mmol/L Carbon Dioxide 23 (22-30) mmol/L Anion Gap 7 mmol/L BUN 18 (9-20) mg/dL Creatinine 0.90 (0.66-1.25) mg/dL Est GFR (CKD-EPI)AfAm 88 (>60 ml/min/1.73 sqM) Est GFR (CKD-EPI)NonAf 77 (>60 ml/min/1.73 sqM) Glucose 96 (74-99) mg/dL POC Glucose (mg/dL) 96 (75-99) mg/dL POC Glu Used Car Manager Luba Torres Calcium 8.9 (8.4-10.2) mg/dL Total Bilirubin 0.6 (0.2-1.3) mg/dL AST 25 (17-59) U/L ALT 20 L (21-72) U/L Alkaline Phosphatase 74 (38-126) U/L Ammonia (<30) umol/L Total Creatine Kinase (55-170) U/L CK-MB (CK-2) (0.0-2.4) ng/mL CK-MB (CK-2) Rel Index Troponin I (0.000-0.034) ng/mL Total Protein 6.8 (6.3-8.2) g/dL Albumin 3.4 L (3.5-5.0) g/dL Disposition Clinical Impression: Fall Disposition: HOME SELF-CARE Instructions: Fall Prevention for Older Adults (ED) Is patient prescribed a controlled substance at d/c from ED?: No Referrals: Hafsa Conway DO [Primary Care Provider] - 1-2 days Time of Disposition: 12:48
[2018-02-07 09:00] LABS: Glucose,Whole Blood 96 mg/dL (75-99)
[2018-02-07 09:21] LABS: Basophils # (A) 0.1 k/uL (0-0.2); Basophils % (A) 1 %; Eosinophils # (A) 0.2 k/uL (0-0.7); Eosinophils % (A) 2 %; HCT 34.6 % (39.0-53.0); HGB 11.4 gm/dL (13.0-17.5); Lymphocytes # (A) 3.8 k/uL (1.0-4.8); Lymphocytes % (A) 34 %; MCH 30.7 pg (25.0-35.0); MCHC 32.9 g/dL (31.0-37.0); MCV 93.4 fL (80.0-100.0); Mean Platelet Volume 8.6; Monocytes # (A) 0.6 k/uL (0-1.0); Monocytes % (A) 6 %; Neutrophils # (A) 5.9 k/uL (1.3-7.7); Neutrophils % (A) 54 %; Platelet Count 219 k/uL (150-450); WBC 11.1 k/uL (3.8-10.6)
[2018-02-07 09:32] LABS: Albumin 3.4 g/dL (3.5-5.0); Calcium 8.9 mg/dL (8.4-10.2); Potassium 4.4 mmol/L (3.5-5.1); Total Bilirubin 0.6 mg/dL (0.2-1.3); Total Protein 6.8 g/dL (6.3-8.2)
[2018-02-07 09:36] LABS: Prothrombin Time 10.3 sec (9.0-12.0)
[2018-02-07 09:37] LABS: Partial Thromboplastin Time 24.9 sec (22.0-30.0)
--- NOTE | 2018-02-07 09:37 | CT ---
EXAMINATION TYPE: CT brain armando muro con DATE OF EXAM: 02/07/2018 COMPARISON: 10/21/2017 HISTORY: Fall CT DLP: 1372.6 mGycm, Automated exposure control for dose reduction was used. CONTRAST: Patient injected with 0 mL of Isovue 300. CT of the brain is performed utilizing 3 mm thick sections through the posterior fossa and 3 mm thick sections through the remaining calvarium. Study is performed within 24 hours of arrival to the hospital. There is soft tissue swelling over the right frontal region. No underlying fracture is evident. No abnormal hyperdensity is present to suggest an acute intracranial hemorrhage. No mass lesion is evident. No acute infarcts are evident. Ventricles and sulci are appropriate for the patient age. There is mucosal thickening within ethmoid air cells. Old nasal bone fractures present. Mastoid air c ells are underpneumatized but otherwise unremarkable. IMPRESSIONS: 1. Periventricular white matter hypodensity is present, likely on the basis of chronic white matter i schemic changes. 2. No acute intracranial process. 3. Soft tissue swelling right frontal region. CT cervical spine. COMPARISON: 10/21/2017 CT of the cervical spine is performed in the axial plane at 2 mm thick sections. Reconstructed image s in the coronal, and sagittal plane are reviewed on the computer. No acute fractures are evident. Vertebral body alignment is normal. There is loss of disc height C4-5 C5-6 C6-7 and C7-T1. Vertebral body heights are preserved. Spondylosis is present. No spinal canal stenosis is evident. Foraminal narrowing from uncovertebral joint hypertrophy and facet hypertrophy is present C2-3 on the left. Uncovertebral joint hypertrophy and facet hypertrophy has moderate right and mild left C3-4 fo raminal stenosis. Severe bilateral foraminal stenosis is present at 5. Moderate left foraminal stenos is is present C5-6-7. Findings are stable from the comparison of 10/21/2017. IMPRESSIONS: 1. Degenerative disc changes. 2. Foraminal stenosis. 3. No acute osseous abnormality cervical spine.
[2018-02-07 10:35] LABS: Creatine Kinase MB 2.3 ng/mL (0.0-2.4); Troponin I 0.02 ng/mL (0.000-0.034)
--- NOTE | 2018-02-07 11:17 | XR ---
EXAMINATION TYPE: XR elbow complete LT DATE OF EXAM: 02/07/2018 CLINICAL HISTORY: Pain from fall injury. TECHNIQUE: Frontal, lateral and oblique images of the left elbow are obtained. COMPARISON: None FINDINGS: There is no acute fracture/dislocation evident in the left elbow. Prominent spur at ulnohu meral articulation is seen. There are additional well-defined bony fragments from the medial and late ral epicondyles of the distal humerus. No abnormal fat pad signs are noted. IMPRESSION: As above.
--- NOTE | 2018-02-07 11:18 | XR ---
EXAMINATION TYPE: XR chest 1V DATE OF EXAM: 02/07/2018 COMPARISON: Chest x-ray October 21, 2017 HISTORY: Chest pain after fall injury. TECHNIQUE: Single frontal view of the chest is obtained. FINDINGS: Overlying EKG leads are seen. Elevated left hemidiaphragm is redemonstrated. Patchy left ba silar opacity is again seen. There is no new suspicious focal air space opacity, pleural effusion, or pneumothorax seen. The cardiac silhouette size is stable and upper limits of normal. The osseous structures are demineralized. Multilevel spurring in thoracic spine is redemonstrated. IMPRESSION: Chronic parenchymal changes without acute pulmonary process.
--- NOTE | 2018-02-07 11:19 | XR ---
AP pelvis HISTORY: Trauma and pain Single frontal view of the pelvis is submitted. Bone mineralization, joint spaces and alignment are maintained. Degenerative disc changes are present in the visualized spine. Suspect there is a spinal curvature. Vascular calcifications are noted inci dentally. IMPRESSION: No fracture or dislocation is evident, follow-up as indicated.
[2018-02-07] MEDS ORDERED: LIDOCAINE 1%-EPI 1:100,000 20 ML VIAL SQ STA (12:05)
[2018-02-07] MEDS ORDERED: DIPH,PERTUS(ACELL)TETVAC-LF 0.5 ML VIAL IM ONE (12:42)
[2018-02-07 13:22] VITALS: BP 120/71; PULSE 80; TEMP 97.9
== END 2018-02-07 13:22 | disposition home or self-care (01) ==
LOC: EC 08:31
DX: S51.012A Laceration without foreign body of left elbow, initial encounter (principal); S00.83XA Contusion of other part of head, initial encounter; I48.91 Unspecified atrial fibrillation; F03.90 Unspecified dementia, unspecified severity, without behavioral disturbance, psychotic disturbance, mood disturbance, and anxiety; H91.90 Unspecified hearing loss, unspecified ear; Z88.2 Allergy status to sulfonamides; Z79.52 Long term (current) use of systemic steroids; Z79.899 Other long term (current) drug therapy; Z23 Encounter for immunization; W19.XXXA Unspecified fall, initial encounter; Y92.099 Unspecified place in other non-institutional residence as the place of occurrence of the external cause
CPT/HCPCS: 12001; 36415; 70450; 71045; 72125; 72170; 80053; 82140; 82550; 82553; 84484; 85025; 85610; 85730; 87040; 87150; 90471; 90715; 93005; 99284